=== PATIENT | female | born 1980 | race Caucasian/White ===

== ENCOUNTER 2024-11-13 05:58 | Emergency (ER) | payer OTHER, SELFPAY ==
[2024-11-13 06:23] VITALS: BP 124/75; PULSE 75; RESP 16; TEMP 36.6; O2SAT 95; BMI 27.9
--- NOTE | 2024-11-13 07:18 | ED.SKABFB ---
HPI - Skin/Abscess/Foreign Bdy General Chief complaint: Skin/Abscess/Foreign Body Stated complaint: Lt breast/underarm wound/ Poss infection Time Seen by Provider: 11/13/24 06:40 Source: patient, RN notes reviewed and old records reviewed Limitations: no limitations History of Present Illness HPI narrative: 44-year-old female with no reported medical problems presents with a complaint of possible abscess or infection under the left axillary upper breast region. Patient states he has had episode of prior that ultimately drained and healed on its own. She states this 1 drained a little bit of purulent drainage yesterday but has not drained anymore. She states it has a little bit larger at that time. No fevers notes maybe little bit of chills last night denies any other symptoms. States no other rash or skin changes elsewhere. Patient denies any other symptoms. Notes an allergy to amoxicillin and penicillin with hives. States she does not take any daily medications currently. Does use tobacco. Related Data Home Medications ?Medication ?Instructions ?Recorded ?Confirmed albuterol sulfate 90 mcg/actuation 2 puff inhalation Q4H PRN wheezing 11/13/24 11/13/24 aerosol inhaler clobetasol 0.05 % topical ointment 1 applic topical DIRECTED 11/13/24 11/13/24 cyclobenzaprine 5 mg tablet 5 mg PO 3XD PRN muscle spasm 11/13/24 11/13/24 hydroxyzine HCl 50 mg tablet 50 mg PO Q6H PRN itch 11/13/24 11/13/24 ondansetron HCl 4 mg tablet 4 mg PO Q6H PRN nausea and vomiting 11/13/24 11/13/24 phentermine 37.5 mg tablet 37.5 mg PO QAM 11/13/24 11/13/24 sumatriptan succinate 100 mg tablet 100 mg PO Q2H PRN migraine 11/13/24 11/13/24 sumatriptan succinate 6 mg/0.5 mL 6 mg SUBCUT PRN PRN migraine 11/13/24 11/13/24 subcutaneous pen injector Previous Rx's ?Medication ?Instructions ?Recorded clindamycin HCl 300 mg capsule 300 mg PO Q6H 7 days #28 caps 11/13/24 fluconazole 150 mg tablet 150 mg PO Q3D 2 doses #2 tabs 11/13/24 Allergies Allergy/AdvReac Type Severity Reaction Status Date / Time amoxicillin Allergy Mild Hives Verified 11/13/24 06:21 red meats Allergy Mild Hives Uncoded 11/13/24 06:21 Review of Systems Review of Systems ROS Unobtainable: All systems reviewed & are unremarkable except as noted in HPI and below Patient History Social History Smoking Status: Current every day smoker Smoking Status: Current every day smoker tobacco type: cigarettes Exam Narrative Exam Narrative: GENERAL: Alert and oriented x three, mild distress HEENT: Head normocephalic, atraumatic, EOMI, pupils reactive, face symmetric, moist mucous membranes NECK: Supple, full range of motion CARDIOVASCULAR: Regular rate and rhythm without murmurs, rubs or gallops. RESPIRATORY: Breath sounds equal bilaterally, no wheezes rales or rhonchi. ABDOMEN: Soft, nontender. Normoactive bowel sounds all 4 quadrants. No guarding or rebound, rigidity, no mass : No CVA tenderness EXTREMITIES: Normal range of motion, no clubbing or edema. Neurovascularly intact NEUROLOGICAL: Cranial nerves II through XII grossly intact. Moving all extremities SKIN: Warm, dry, no petechiae, no rashes, patient has a dime-sized lesion with no active drainage, is tender with a small area of induration and erythema surrounding in the inferior portion of the axilla just above the edge of the breast. Patient also has a little bit of tenderness up into her right axilla on that side. There was no warmth. No lumps or masses of the breast. Initial Vital Signs Initial Vital Signs: Vital Signs Temperature 97.8 F 11/13/24 06:23 Pulse Rate 75 11/13/24 06:23 Respiratory Rate 16 11/13/24 06:23 Blood Pressure 124/75 11/13/24 06:23 Pulse Oximetry 95 11/13/24 06:23 Oxygen Delivery Method Room Air 11/13/24 06:23 Course Orders Ordered: Discontinued Medications Clindamycin HCl (Clindamycin 150 Mg Capsule) 300 mg PO NOW ONE Stop: 11/13/24 07:30 Last Admin: 11/13/24 07:44 Dose: 300 mg Documented By: MASSIEL Vital Signs Vital signs: Vital Signs - 8 hr 11/13/24 06:23 Temperature 97.8 F Pulse Rate 75 Respiratory Rate 16 Blood Pressure 124/75 Pulse Oximetry 95 Oxygen Delivery Method Room Air MDM - Skin/Abscess/Foreign Bdy MDM Narrative Medical decision making narrative: 44-year-old female which appears to have small abscess at the bottom of the left axilla/upper edge of the breast. On bedside ultrasound no fluid collection we will start oral antibiotic patient is to follow up. If no improvement she should have further evaluation. Discharge Plan Departure Patient Disposition: Home Clinical Impression: Abscess of skin or subcutaneous tissue Instructions: DI for Skin Abscess Activity Restrictions/Additional Instructions: You appear to have an abscess in your left axilla/upper edge of your left breast. If it does not fully heal he should have evaluation and possibly more specific evaluation of the breast tissue if it continues to be present. Take oral antibiotics until completed. Prescription for Diflucan is also included. Prescription sent to [facility]. Please return or go to the nearest ER for fevers, rapidly worsening redness, increasing pain, any vomiting, any new warmth, increasing drainage or other new or concerning changes. Prescriptions: New clindamycin HCl 300 mg capsule 300 mg PO Q6H 7 Days Qty: 28 0RF fluconazole 150 mg tablet 150 mg PO Q3D Qty: 2 0RF No Action clobetasol 0.05 % ointment 1 applic topical DIRECTED albuterol sulfate 90 mcg/actuation HFA aerosol inhaler 2 puff inhalation Q4H PRN (Reason: wheezing) ondansetron HCl 4 mg tablet 4 mg PO Q6H PRN (Reason: nausea and vomiting) hydroxyzine HCl 50 mg tablet 50 mg PO Q6H PRN (Reason: itch) cyclobenzaprine 5 mg tablet 5 mg PO 3XD PRN (Reason: muscle spasm) sumatriptan succinate 100 mg tablet 100 mg PO Q2H PRN (Reason: migraine) phentermine 37.5 mg tablet 37.5 mg PO QAM sumatriptan succinate 6 mg/0.5 mL pen injector 6 mg SUBCUT PRN PRN (Reason: migraine) Stand Alone Forms: Patient Portal/API
[2024-11-13 07:42] VITALS: BP 117/63; PULSE 65; RESP 14; O2SAT 97
[2024-11-13] MEDS: CLINDAMYCIN 150 MG CAPSULE 300 MG PO (07:44)
== END 2024-11-13 07:58 | disposition home or self-care (01) ==
PROVIDERS: Emergency Provider Emergency Medicine
DX: L02.412 Cutaneous abscess of left axilla (principal)
CPT/HCPCS: 99283

== ENCOUNTER → 2025-01-13 12:33 | Outpatient (CLI) | payer OTHER, SELFPAY ==
--- NOTE | 2025-01-13 12:35 | DI.MRI.S_ITS ---
PROCEDURE: MR CERVICAL SPINE WO CON INDICATIONS: neck pain, worsening balance, hyperreflexia TECHNIQUE: Noncontrast sagittal T1 spin echo and T2 fast spin echo, sagittal STIR, foraminal oblique sagittal T2 fast spin echo, and axial gradient echo or T2 fast spin echo through the cervical spine. COMPARISON: Outside Facility, MR, MR CERVICAL SPINE WO CON, 08/13/2024, 9:33. FINDINGS: Image quality: Excellent. Alignment and Curvature: Straightening of the normal cervical lordosis. Bone Marrow: Degenerative endplate changes, most pronounced at C5-C6. Marrow demonstrates normal overall signal. Spinal Cord: Visualized spinal cord has normal size and signal. No cerebellar tonsillar herniation. Paraspinous Soft Tissues: No paravertebral masses. Prevertebral soft tissues are normal in thickness. C2-C3: No central canal or neural foraminal stenosis. C3-C4: Disc desiccation. No central canal or neural foraminal stenosis. C4-C5: Disc desiccation. Mild facet and uncovertebral arthropathy on the left. Mild left neural foraminal stenosis. No right neural foraminal stenosis. No central canal stenosis. C5-C6: Disc desiccation and moderate height loss. Posterior disc osteophyte complex. Facet and uncovertebral arthropathy mild central canal stenosis. Moderate bilateral neural foraminal stenosis. Stable compared to prior. C6-C7: Disc desiccation and moderate height loss. Posterior disc osteophyte complex. Facet and uncovertebral arthropathy. Moderate central canal stenosis. Moderate bilateral neural foraminal stenosis. Stable compared to prior. C7-T1: No central canal or neural foraminal stenosis. IMPRESSION: 1. Stable degenerative changes of the cervical spine as described above. 2. Moderate central canal stenosis at C6-C7. 3. Moderate bilateral neural foraminal stenosis at C5-C6 and C6-C7. Dictated by: Gabriel Leon M.D. on 01/13/2025 at 14:39 Approved by: Gabriel Leon M.D. on 01/13/2025 at 14:46
== END ==
LOC: MRI 12:34
PROVIDERS: PCP Student in an Organized Health Care Education/Training Program; Referring Provider Physical Medicine & Rehabilitation; Visit Provider Physical Medicine & Rehabilitation
DX: M48.02 Spinal stenosis, cervical region (principal); M47.812 Spondylosis without myelopathy or radiculopathy, cervical region
CPT/HCPCS: 72141

== ENCOUNTER → 2025-02-03 14:41 | Outpatient (CLI) | payer OTHER, SELFPAY ==
--- NOTE | 2025-02-03 14:42 | DI.MG.S_ITS ---
MM screening mammo BI: 02/03/2025. BI-RADS: 1 CLINICAL: 44-year old female for bilateral screening mammogram. Tyrer-Cuzick lifetime risk of 38.9%. Current reported family history of breast cancer: maternal grandmother, paternal grandmother and mother. PRIOR EXAMS: None. This is a baseline mammogram. MAMMOGRAPHY TECHNIQUE: 2D and 3D (tomosynthesis) digital mammographic views obtained, with additional images as needed for full coverage. Current study was also evaluated with a Computer Aided Detection (CAD) system. DENSITY C. The breasts are heterogeneously dense, which may obscure small masses. MAMMOGRAPHY FINDINGS Bilateral: No suspicious mass, asymmetry, microcalcification, or other abnormality seen. IMPRESSION: * No evidence of malignancy. RECOMMENDATIONS Bilateral * According to the Tyrer-Cuzick Risk Assessment Model, based on the information provided your patient has a greater than 20% lifetime risk for developing breast cancer. Consider supplemental screening with breast MRI and participation in a high risk screening program. * Annual screening mammography. OVERALL ASSESSMENT CATEGORY BI-RADS-1: Negative. The [employer] recommends annual screening mammography beginning at age 40 for women with average risk of breast cancer. ELECTRONICALLY SIGNED: Eliceo Jacques M.D. on 02/04/2025 at 02:11:19 PM PT Interpreting Station ID: [id number]
== END ==
PROVIDERS: PCP Student in an Organized Health Care Education/Training Program; Referring Provider Student in an Organized Health Care Education/Training Program; Visit Provider Student in an Organized Health Care Education/Training Program
DX: Z12.31 Encounter for screening mammogram for malignant neoplasm of breast (principal); Z80.3 Family history of malignant neoplasm of breast; R92.333 Mammographic heterogeneous density, bilateral breasts
CPT/HCPCS: 77063; 77067